=== PATIENT | male | born 2000 | race Caucasian/White ===

== ENCOUNTER 2024-12-23 17:20 | Emergency (ER) | payer MEDICAID ==
[~2024-12-23] VITALS: Ht 182.9 cm; Wt 91.0 kg
[2024-12-23 17:30] VITALS: O2SAT 97
[2024-12-23 22:12] VITALS: BP 135/86; PULSE 81; RESP 16; TEMP 36.8; O2SAT 99
== END 2024-12-23 22:21 | disposition home or self-care (01) ==
LOC: ER 17:20
DX: R07.89 Other chest pain (principal); I25.2 Old myocardial infarction; Z79.01 Long term (current) use of anticoagulants
CPT/HCPCS: 71045; 93005; 99283